=== PATIENT | female | born 1990 | race Caucasian/White ===

== ENCOUNTER 2016-12-30 08:17 | Outpatient (CLI) | payer OTHER | END 2016-12-30 11:00 | disposition home or self-care (01) | LOC: GENOP 08:17 | DX: O47.1 False labor at or after 37 completed weeks of gestation (principal); Z3A.39 39 weeks gestation of pregnancy | CPT/HCPCS: 81001; 83518; G0463 ==

== ENCOUNTER 2016-12-31 19:31 | Outpatient (CLI) | payer OTHER | END 2016-12-31 21:19 | disposition home or self-care (01) | LOC: GENOP 19:31 | DX: O46.93 Antepartum hemorrhage, unspecified, third trimester (principal); Z3A.39 39 weeks gestation of pregnancy | CPT/HCPCS: G0463 ==

== ENCOUNTER 2017-01-07 04:59 | Inpatient (IN) | payer OTHER ==
[2017-01-07 06:53] LABS: HEMOGLOBIN 10.2 gm/dl (12.3-15.3); RED BLOOD COUNT 3.79 M/UL (4.00-5.10); WHITE BLOOD COUNT 10.5 K/UL (4.5-11.0)
[2017-01-08 03:07] LABS: HEMOGLOBIN 8.2 gm/dl (12.3-15.3)
[2017-01-09] MEDS ORDERED: COLACE 100MG C100 MG PO (10:06)
== END 2017-01-09 13:21 | disposition home or self-care (01) | DRG 775 ==
LOC: OB 04:59
PROVIDERS: Obstetrics & Gynecology; ADMIT Obstetrics & Gynecology
PROC: 0UQMXZZ Repair Vulva, External Approach (ICD-10-PCS; principal; 2017-01-07)
PROC: 10E0XZZ Delivery of Products of Conception, External Approach (ICD-10-PCS; 2017-01-07)
PROC: 3E033VJ Introduction of Other Hormone into Peripheral Vein, Percutaneous Approach (ICD-10-PCS; 2017-01-07)
PROC: 10907ZC Drainage of Amniotic Fluid, Therapeutic from Products of Conception, Via Natural or Artificial Opening (ICD-10-PCS; 2017-01-07)
PROC: 3E0R3CZ (ICD-10-PCS; 2017-01-07)
DX: O48.0 Post-term pregnancy (principal); Z3A.40 40 weeks gestation of pregnancy; Z37.0 Single live birth; O70.0 First degree perineal laceration during delivery; O99.02 Anemia complicating childbirth; D64.9 Anemia, unspecified; O99.513 Diseases of the respiratory system complicating pregnancy, third trimester; J45.909 Unspecified asthma, uncomplicated; O99.62 Diseases of the digestive system complicating childbirth; K21.9 Gastro-esophageal reflux disease without esophagitis; K64.8 Other hemorrhoids; O99.89 Other specified diseases and conditions complicating pregnancy, childbirth and the puerperium; M41.9 Scoliosis, unspecified; Z87.891 Personal history of nicotine dependence; Z83.3 Family history of diabetes mellitus; Z82.49 Family history of ischemic heart disease and other diseases of the circulatory system
CPT/HCPCS: 36415; 51702; 81001; 82800; 85014; 85018; 85025; J2300; J2405; J2590; J2795; J3010; J7120

== ENCOUNTER → 2021-01-16 | Outpatient (CLI) | payer OTHER ==
[~2021-01-16] MED LIST: ACID CONTROL150 MG PO; CEFUROXIME500 MG PO; COLACE 100MG C100 MG PO; DOXYCYCLINE HY100 M2 PO; HYDROCODON-ACE1 EAC4 PO; IBUPROFEN600 MG PO; KEFLEX CAP 500500 MG PO; LORTAB 5-325 M1 EACH PO; MACROBID 100 M100 MG PO; METRONIDAZOLE250 MG PO; NORCO 5-325 TA1 EACH PO; PHENERGAN 12.12.5 M1 PO; PRENATABS RX T1 EACH PO; PROTONIX40 M1 PO; VENTOLIN HFA 66.7 GM INH; ZOFRAN4 MG PO; ZOFRAN8 MG PO
== END ==
LOC: KOH-I 01-09 08:45
DX: M25.561 Pain in right knee (principal); M25.461 Effusion, right knee; M25.361 Other instability, right knee
CPT/HCPCS: 73721

== ENCOUNTER 2022-05-05 12:52 | Emergency (ER) | payer OTHER | END 2022-05-05 14:50 | disposition left against medical advice (07) | LOC: ER1 12:52 | DX: O99.891 Other specified diseases and conditions complicating pregnancy (principal); M25.551 Pain in right hip; M54.9 Dorsalgia, unspecified; Z3A.18 18 weeks gestation of pregnancy; Z88.5 Allergy status to narcotic agent | CPT/HCPCS: 99283 ==